=== PATIENT | female | born 1960 | race African-American/Black ===

== ENCOUNTER → 2016-07-30 | Outpatient (CLI) | payer OTHER ==
[~2016-07-30] MED LIST: ACYCLOVIR400 MG PO; ADDERALLXR PO; ALPRAZOLAM PO; AMITRYPTYLINE PO; CLARITIN10 M3 PO; DARVOCET-N 1001 TA1 PO; FLONASE 0.05% N16 G1 IN; FLOVENT DI50 MCG/DIS IH; HCTZ PO; HYDROCHLOROTHIA25 MG PO; K-DUR20 ME1 PO; LOSARTAN-HCTZ1 EAC1 PO; MEDROL4 MG/DOSE- PO; MOBIC PO; MULTI VITAMIN1 EACH PO; NASONEX17 GM; NEURONTIN100 MG PO; NEXIUM PO; PROTONIX PO; TRAZODONE PO; VYVANSE PO; WELLBUTRIN XL PO; ZOLOFT PO
--- NOTE | ~2016-07-30 | CR263 ---
[facility] A Service of [facility] RADIOLOGY TEXT RESULTS PATIENT: REBECCA AU LOCATION: [facility] : 64 UNIT #: [id number] AGE: [address]: Hoa Christensen SEX: F ORDER DR: [id number] [address] [id number] O MR#: [id number] Acc #: [id number] NAME: REBECCA AU : 1960 SEX: F STUDY DATE/TIME: 07/30/2016 9:15 UNIT: [facility] ROOM: STUDY DESCRIPTION: CR Toe 2 Views Great Rt Attending Physician: Hoa Christensen A.P.R.N. Referring Physician: Hoa Christensen A.P.R.N. Ordering Physician: Hoa Christensen A.P.R.N. Primary Care Physician: Bhupinder Matos M.D. MEDICAL IMAGING REPORT This report is preliminary unless electronic signature is present. EXAM 3 views of the right great toe. DATE OF EXAM 07/30/2016 HISTORY Right great toe pain after falling down stairs at home in May 2016. COMPARISON None. FINDINGS No fracture or joint dislocation is seen. There is minimal spurring at the lateral surface of the first metatarsal phalangeal joint. No osteolytic or osteoblastic abnormalities are identified. No unexpected retained radiopaque foreign bodies seen in the soft tissues. No osteolytic or osteoblastic abnormalities. There is a tiny bony exostosis projecting from the proximal and medial margin of the proximal phalanx of the great toe measuring only 1-2 mm, of doubtful clinical significance. IMPRESSION Mild degenerative change of the first metatarsal phalangeal joint. No acute abnormalities of the right great toe. Dictated by... Silvia Humphreys M.D. THIS IS AN ELECTRONICALLY VERIFIED REPORT Silvia Humphreys M.D. at 08/01/2016 12:[address] [facility]/jt [facility] A Service [facility] RADIOLOGY TEXT RESULTS PATIENT: REBECCA AU LOCATION: [facility] : 64 UNIT #: [id number] AGE: [address]: Hoa Christensen SEX: F ORDER DR: TD: 07/30/2016 15:58 JOB #: [id number] MEDICAL IMAGING REPORT Page 1 of 1
== END | disposition home or self-care (01) ==
LOC: SRAD 08:27
DX: M79.674 Pain in right toe(s) (principal)
CPT/HCPCS: 73660